=== PATIENT | female | born 1945 | race Caucasian/White ===

== ENCOUNTER 2017-07-07 14:38 | Inpatient (IN) ==
[2017-07-07] MEDS ORDERED: LOPERAMIDE 2 MG CAPSULE PO STA (15:26)
[2017-07-07] MEDS ORDERED: metroNIDAZOLE INJ 500 MG in PREMIX 1 EACH IV STA (15:26)
[2017-07-07] MEDS ORDERED: ONDANSETRON 4 MG/2 ML VIAL IV STA (15:26)
[2017-07-07] MEDS ORDERED: ALBUTEROL/IPRATROPIUM 3 ML NEB RESP TX STA (15:26)
[2017-07-07] MEDS ORDERED: methylPREDNISolone SOD SUC 125 MG/2 ML VIAL IV STA (15:26)
[2017-07-07 16:30] LABS: Basophils # 0.1 10*3/uL (0.0-0.2); Basophils % 0.6 % (0.0-0.8); Eosinophils # 0.4 10*3/uL (0.0-0.87); Eosinophils % 4.9 % (0.00-10.9); Hematocrit 28.3 VOL% (35.7-47.0); Hemoglobin 9.7 GM/DL (12.0-16.0); Immature Granulocytes % 0.5 %; Immature Granulocytes Absolute 0.04 #; Lymphocytes # 0.9 10*3/uL (1.4-4.0); Lymphocytes % 10.7 % (21.3-54.2); Mean Corpuscular HGB Conc 34.3 GM/DL (32-36); Mean Corpuscular Hemoglobin 32 PG (27-34); Mean Platelet Volume 11.7 FL (9.6-12.0); Monocytes # 0.8 10*3/uL (0.11-0.8); Monocytes % 10.3 % (1.7-12.7); Neutrophils # 5.9 10*3/uL (1.4-7.4); Red Blood Count 3.01 MC/CUMM (3.8-5.5); White Blood Count 8.1 T/CUMM (4-12)
[2017-07-07 16:35] LABS: Platelet Count 59 T/CUMM (130-400)
[2017-07-07 16:42] LABS: INR 1.5; PT Patient Result 15.2 SECS
[2017-07-07] MEDS ORDERED: LOPERAMIDE 2 MG CAPSULE ONE (16:45)
[2017-07-07] MEDS ORDERED: metroNIDAZOLE 500 MG/100 ML PREMIX IV ONE (16:45)
[2017-07-07] MEDS ORDERED: ONDANSETRON 4 MG/2 ML VIAL ONE (16:45)
[2017-07-07] MEDS ORDERED: methylPREDNISolone SOD SUC 125 MG/2 ML VIAL ONE (16:45)
[2017-07-07 16:52] LABS: Alanine Aminotransferase 27 U/L (13-56); Albumin 1.9 G/DL (3.4-5.0); Alkaline Phosphatase 213 U/L (45-117); Aspartate Amino Transferase 48 U/L (0-37); Blood Urea Nitrogen 73 MG/DL (7-18); Calcium 7.9 MG/DL (8.5-10.1); Glucose 133 MG/DL (74-106); Osmolality,Calculated 304.3 MOS/KG (273-304); Potassium 3.9 MMOL/L (3.5-5.1); Sodium 141 MMOL/L (136-145); Total Protein 5.5 G/DL (6.4-8.3); Troponin I Only 0.016 NG/ML (0.00-0.045)
[2017-07-07 17:05] LABS: Platelet Estimate Decreased
[2017-07-07 17:15] LABS: Lactic Acid 2.5 MMOL/L (0.4-2.0)
[2017-07-07 18:01] LABS: Ammonia 77 UMOL/L (11-32)
[2017-07-07 18:14] LABS: Apearance,Urine CLOUDY (Clear); Bilirubin,Urine Negative (Negative); Blood, Urine Large mg/dL (Negative); Glucose,Urine (UA) Negative (Negative); Hyaline Casts,Urine 5 /LPF (0-3); Ketones,Urine Negative (Negative); Nitrite,Urine Negative (Negative); Protein,Urine >=500 MG/DL; RBC,Urine 574 /HPF (0-4); Squamous Epithelial Cell,Urine Occasional /HPF (0-10); Urine Color Amber (Yellow); Urine Specific Gravity 1.011 (1.001-1.035); Urine Urobilinogen < 2.0 EU/DL (0.2-1.0)
[2017-07-07] MEDS ORDERED: ONDANSETRON 4 MG/2 ML VIAL IV PRN (18:24)
[2017-07-07] MEDS ORDERED: HYDROmorphone 2 MG/1 ML VIAL IV PRN (18:24)
[2017-07-07] MEDS ORDERED: ENOXAPARIN 30 MG/0.3 ML SYRINGE SUBCUT SCH (18:30)
[2017-07-07] MEDS: SODIUM CHLORIDE 0.9% 1,000 ML IV SCH (21:31)
[2017-07-07] MEDS: MAGNESIUM CHLORIDE 64 MG TABLET PO SCH (21:33)
[2017-07-07 22:11] LABS: Lactic Acid 2.1 MMOL/L (0.4-2.0)
[2017-07-08 01:44] LABS: Basophils % 0.2 % (0.0-0.8); Hematocrit 27.1 VOL% (35.7-47.0); Hemoglobin 9.4 GM/DL (12.0-16.0); Immature Granulocytes % 0.4 %; Immature Granulocytes Absolute 0.02 #; Lymphocytes # 0.3 10*3/uL (1.4-4.0); Lymphocytes % 5.4 % (21.3-54.2); Mean Corpuscular HGB Conc 34.7 GM/DL (32-36); Mean Corpuscular Hemoglobin 32 PG (27-34); Mean Corpuscular Volume 92.8 FL (87-102); Mean Platelet Volume 11.3 FL (9.6-12.0); Monocytes % 0.6 % (1.7-12.7); Neutrophils # 5.1 10*3/uL (1.4-7.4); Neutrophils % 93.4 % (38.7-73.9); Platelet Count 50 T/CUMM (130-400); Red Blood Count 2.92 MC/CUMM (3.8-5.5); Red Cell Distribution Width 15.9 % (9.3-17.3); White Blood Count 5.4 T/CUMM (4-12)
[2017-07-08 02:12] LABS: Albumin 1.7 G/DL (3.4-5.0); Bilirubin,Total 1.5 MG/DL (0.2-1.0); Calcium 7.9 MG/DL (8.5-10.1); Osmolality,Calculated 302.4 MOS/KG (273-304); Potassium 4.4 MMOL/L (3.5-5.1); Total Protein 5.2 G/DL (6.4-8.3)
[2017-07-08 03:27] LABS: Band Neutrophils 15 % (0-10); Lymphocytes 1 % (20-55); Metamyelocytes 1 %; Segmented Neutrophils 83 % (50-85); Total Cells Counted 100
[2017-07-08 03:28] LABS: Anisocytosis 1+; Poikilocytosis 1+
[2017-07-08] MEDS: SODIUM CHLORIDE 0.9% 1,000 ML IV SCH ×2 (05:25→15:03)
[2017-07-08] MEDS ORDERED: FAMOTIDINE 20 MG TABLET PO SCH (09:00)
[2017-07-08] MEDS ORDERED: HYDROcod/ACETAMIN 7.5-325 MG/15 ML UDCUP PO PRN (09:13)
[2017-07-08] MEDS: FOLIC ACID 0.4 MG TABLET PO SCH (09:30)
[2017-07-08] MEDS: MONTELUKAST 10 MG TABLET PO SCH (09:31)
[2017-07-08] MEDS: MAGNESIUM CHLORIDE 64 MG TABLET PO SCH ×3 (09:34→20:46)
[2017-07-08] MEDS: RIFAXIMIN 550 MG TABLET PO SCH (20:46)
[2017-07-09] MEDS: SODIUM CHLORIDE 0.9% 1,000 ML IV SCH ×4 (01:38→19:34)
[2017-07-09 05:23] LABS: Basophils % 0.2 % (0.0-0.8); Eosinophils % 0.4 % (0.00-10.9); Hematocrit 26.6 VOL% (35.7-47.0); Lymphocytes % 9.9 % (21.3-54.2); Mean Corpuscular HGB Conc 33.8 GM/DL (32-36); Mean Corpuscular Hemoglobin 33 PG (27-34); Mean Platelet Volume 11.3 FL (9.6-12.0); Monocytes # 0.7 10*3/uL (0.11-0.8); Monocytes % 7.1 % (1.7-12.7); Neutrophils # 7.9 10*3/uL (1.4-7.4); Neutrophils % 81.4 % (38.7-73.9); Red Blood Count 2.77 MC/CUMM (3.8-5.5); Red Cell Distribution Width 16.4 % (9.3-17.3); White Blood Count 9.8 T/CUMM (4-12)
[2017-07-09 05:30] LABS: Platelet Count 65 T/CUMM (130-400)
[2017-07-09 06:04] LABS: Albumin 1.7 G/DL (3.4-5.0); Bilirubin,Total 1.1 MG/DL (0.2-1.0); Calcium 7.4 MG/DL (8.5-10.1); Osmolality,Calculated 300.5 MOS/KG (273-304); Potassium 4.3 MMOL/L (3.5-5.1); Total Protein 4.8 G/DL (6.4-8.3)
[2017-07-09 06:22] LABS: Hypochromasia Slight; Platelet Estimate Decreased; Polychromasia Few
[2017-07-09] MEDS: MAGNESIUM CHLORIDE 64 MG TABLET PO SCH ×3 (09:57→21:00)
[2017-07-09] MEDS: MONTELUKAST 10 MG TABLET PO SCH (09:58)
[2017-07-09] MEDS: RIFAXIMIN 550 MG TABLET PO SCH ×2 (09:58→21:00)
[2017-07-09] MEDS: FOLIC ACID 0.4 MG TABLET PO SCH (09:58)
[2017-07-10] MEDS: SODIUM CHLORIDE 0.9% 1,000 ML IV SCH ×3 (02:32→23:16)
[2017-07-10] MEDS: FOLIC ACID 0.4 MG TABLET PO SCH (08:36)
[2017-07-10] MEDS: MONTELUKAST 10 MG TABLET PO SCH (08:37)
[2017-07-10] MEDS: RIFAXIMIN 550 MG TABLET PO SCH ×2 (08:37→20:38)
[2017-07-10] MEDS: MAGNESIUM CHLORIDE 64 MG TABLET PO SCH ×3 (08:37→20:38)
[2017-07-10] MEDS ORDERED: ZINC OXIDE PASTE 113 GM TUBE TOP PRN (15:46)
[2017-07-10] MEDS: NYSTATIN POWDER 15 GM BOTTLE TOP SCH (20:39)
[2017-07-11] MEDS: SODIUM CHLORIDE 0.9% 1,000 ML IV SCH ×2 (03:35→10:22)
[2017-07-11 06:52] LABS: Basophils % 0.6 % (0.0-0.8); Eosinophils # 0.5 10*3/uL (0.0-0.87); Hematocrit 28.7 VOL% (35.7-47.0); Hemoglobin 9.5 GM/DL (12.0-16.0); Immature Granulocytes % 0.8 %; Immature Granulocytes Absolute 0.06 #; Lymphocytes # 1.3 10*3/uL (1.4-4.0); Lymphocytes % 17.4 % (21.3-54.2); Mean Corpuscular HGB Conc 33.1 GM/DL (32-36); Mean Corpuscular Hemoglobin 33 PG (27-34); Mean Corpuscular Volume 98.3 FL (87-102); Mean Platelet Volume 11.6 FL (9.6-12.0); Monocytes # 0.7 10*3/uL (0.11-0.8); Monocytes % 9.9 % (1.7-12.7); Neutrophils # 4.7 10*3/uL (1.4-7.4); Neutrophils % 64.3 % (38.7-73.9); Platelet Count 53 T/CUMM (130-400); Red Blood Count 2.92 MC/CUMM (3.8-5.5); Red Cell Distribution Width 16.2 % (9.3-17.3); White Blood Count 7.2 T/CUMM (4-12)
[2017-07-11 07:15] LABS: Microcytosis 1+; Platelet Estimate Decreased
[2017-07-11 07:16] LABS: Hypochromasia 1+
[2017-07-11 07:18] LABS: Calcium 7.6 MG/DL (8.5-10.1); Osmolality,Calculated 299.4 MOS/KG (273-304); Potassium 3.9 MMOL/L (3.5-5.1)
[2017-07-11] MEDS: FOLIC ACID 0.4 MG TABLET PO SCH (09:28)
[2017-07-11] MEDS: MAGNESIUM CHLORIDE 64 MG TABLET PO SCH ×3 (09:28→20:26)
[2017-07-11] MEDS: MONTELUKAST 10 MG TABLET PO SCH (09:28)
[2017-07-11] MEDS: RIFAXIMIN 550 MG TABLET PO SCH ×2 (09:29→20:26)
[2017-07-11] MEDS: NYSTATIN POWDER 15 GM BOTTLE TOP SCH ×2 (10:22→20:27)
[2017-07-11] MEDS: ALBUTEROL 2.5 MG/3 ML NEB RESP TX PRN ×2 (10:50→19:55)
[2017-07-11] MEDS ORDERED: ALBUTEROL 2.5 MG/3 ML NEB RESP TX ONE (10:51)
[2017-07-11] MEDS ORDERED: LIDOCAINE 2% 5 ML VIAL ONE (11:48)
[2017-07-11] MEDS ORDERED: PROPOFOL 200 MG/20 ML VIAL IV ONE (11:48)
[2017-07-11] MEDS: SODIUM BICARB INJ 150 MEQ in STERILE WATER INJ 1,000 ML IV SCH (18:18)
[2017-07-12] MEDS ORDERED: ACETAMINOPHEN 325 MG TABLET PO PRN ×2 (01:08→01:11)
[2017-07-12] MEDS: SODIUM BICARB INJ 150 MEQ in STERILE WATER INJ 1,000 ML IV SCH ×2 (05:33→10:49)
[2017-07-12 07:40] LABS: Calcium 7.5 MG/DL (8.5-10.1); Osmolality,Calculated 305.3 MOS/KG (273-304); Potassium 4.2 MMOL/L (3.5-5.1)
[2017-07-12] MEDS: FOLIC ACID 0.4 MG TABLET PO SCH (08:58)
[2017-07-12] MEDS: MAGNESIUM CHLORIDE 64 MG TABLET PO SCH ×3 (08:59→20:22)
[2017-07-12] MEDS: MONTELUKAST 10 MG TABLET PO SCH (08:59)
[2017-07-12] MEDS: RIFAXIMIN 550 MG TABLET PO SCH ×2 (08:59→20:22)
[2017-07-12] MEDS: NYSTATIN POWDER 15 GM BOTTLE TOP SCH ×2 (08:59→20:27)
[2017-07-12] MEDS: ALBUTEROL 2.5 MG/3 ML NEB RESP TX PRN (11:02)
[2017-07-12] MEDS: SODIUM BICARBONATE 650 MG TABLET PO SCH (20:22)
[2017-07-13 07:23] LABS: Basophils % 0.3 % (0.0-0.8); Eosinophils # 0.7 10*3/uL (0.0-0.87); Eosinophils % 6.6 % (0.00-10.9); Hematocrit 26.2 VOL% (35.7-47.0); Hemoglobin 8.8 GM/DL (12.0-16.0); Lymphocytes # 0.9 10*3/uL (1.4-4.0); Lymphocytes % 8.5 % (21.3-54.2); Mean Corpuscular HGB Conc 33.6 GM/DL (32-36); Mean Corpuscular Hemoglobin 33 PG (27-34); Mean Platelet Volume 11.8 FL (9.6-12.0); Monocytes # 0.6 10*3/uL (0.11-0.8); Monocytes % 6.2 % (1.7-12.7); Neutrophils # 8.1 10*3/uL (1.4-7.4); Neutrophils % 77.4 % (38.7-73.9); Red Cell Distribution Width 16.4 % (9.3-17.3); White Blood Count 10.4 T/CUMM (4-12)
[2017-07-13 07:29] LABS: Platelet Count 50 T/CUMM (130-400)
[2017-07-13 07:51] LABS: Calcium 7.5 MG/DL (8.5-10.1); Osmolality,Calculated 308.3 MOS/KG (273-304); Potassium 3.9 MMOL/L (3.5-5.1)
[2017-07-13 07:57] LABS: Burr Cells Slight; Hypochromasia 1+; Ovalocytes Slight; Platelet Estimate Decreased
[2017-07-13 07:58] LABS: Microcytosis Slight
[2017-07-13] MEDS: SODIUM BICARBONATE 650 MG TABLET PO SCH (08:19)
[2017-07-13] MEDS: MAGNESIUM CHLORIDE 64 MG TABLET PO SCH (08:19)
[2017-07-13] MEDS: MONTELUKAST 10 MG TABLET PO SCH (08:19)
[2017-07-13] MEDS: FOLIC ACID 0.4 MG TABLET PO SCH (08:19)
[2017-07-13] MEDS: RIFAXIMIN 550 MG TABLET PO SCH (08:20)
[2017-07-13] MEDS: NYSTATIN POWDER 15 GM BOTTLE TOP SCH (09:30)
[2017-07-13 11:57] VITALS: BP 150/74
== END 2017-07-13 12:40 | disposition swing bed (61) | DRG 682 ==
LOC: N.ED 14:38 → N.EDINP 17:43 → N.3E 19:06